=== PATIENT | male | born 1980 | race Hispanic/Latino ===

== ENCOUNTER 2019-03-06 01:19 | Inpatient (IN) | payer SELFPAY ==
[2019-03-06] MEDS ORDERED: Ibuprofen 200 MG TAB ONE (02:10)
[2019-03-06] MEDS ORDERED: Diazepam 5 MG TAB ONE (02:10)
[2019-03-06 03:05] LABS: Bacteria/HPF None Seen HPF (None Seen); Bilirubin Negative (Negative); Blood, Urine Trace (Negative); Clarity Clear (Clear); Glucose, Urine (Dipstick) Normal (Negative); Leukocyte Negative Leu/uL (Negative); Nitrite Negative (Negative); Protein, Urine (Dipstick) Negative (Neg-Trace); RBC/HPF 0-3 HPF (0-3); Squamous Epithelial None Seen HPF (0-3); Urobilinogen Normal mg/dL (Less than 2); WBC/HPF 0-3 HPF (0-3)
[2019-03-06] MEDS ORDERED: Acetaminophen 325 MG TAB PO PRN (04:18)
[2019-03-06] MEDS ORDERED: Lorazepam 2 MG/ML VIAL SLOW IVP PRN (04:29)
--- NOTE | 2019-03-06 05:24 | HP ---
CHIEF COMPLAINT: Seizures. HISTORY OF PRESENT ILLNESS: This patient is a 39-year-old male with a history of heavy alcohol use, who reports he had a seizure about a month ago, that was the first seizure he had ever had. He had been seen in [facility] in [place]. He says he was started on a seizure medication, was under the impression that he had the seizure because he was dehydrated. He took the medicine for about 2 weeks, then he left town and he has not been on the medication since. The patient was transferred here from [facility] in [place]. Their records indicate that from bystanders witnessing it, the patient was standing, he fell forward into the person standing in front of him and started having a seizure. They were able to catch him and lower him to the ground without him having a significant fall injury. He subsequently had a bit of blood from his nose. He was taken to the hospital there in [place], where he was confused, a little combative. He required several doses of IV Ativan. He settled down and slowly became more oriented. He subsequently had some vomiting, which was concerning for possible coffee-grounds emesis. He was subsequently evaluated where he was found to have a white count of 3.6, but a chest x-ray revealed left-sided pneumonia. He was given Zosyn and subsequently transferred to this facility. Currently, the patient reports some pain in his tongue where he had injured it during the seizure. He also reports that he has had a cough for several days. Reports that he did have fever prior to the seizure that was over 101, although it is very difficult to get the exact timeline of his symptoms relative to the seizure. REVIEW OF SYSTEMS: The patient has had some shortness of breath with exertion since October. He has had cough for about 3 days. All other systems reviewed. All pertinent positives and negatives noted in the history of present illness. PAST MEDICAL HISTORY: Above-mentioned history of the seizure and he also reports some anxiety. PAST SURGICAL HISTORY: None. FAMILY HISTORY: He believes there is family history of diabetes and hypertension. SOCIAL HISTORY: The patient actually lives in [place]. He drinks 4-9 beers per day and he states he drinks about 5 days per week. Denies tobacco. Denies drugs. MEDICATIONS: None, although again the patient was prescribed an antiseizure medication a month ago and he only took it for 2 weeks. ALLERGIES: NONE. PRIMARY CARE PHYSICIAN: The patient does not have a primary care provider. He is full code. His surrogate decision maker would be his mother. PHYSICAL EXAMINATION: VITAL SIGNS: Most recent set of vitals, BP 153/98, pulse 85, respirations 20, temperature max was 101.4, O2 saturations 95% on 4 L nasal cannula. GENERAL APPEARANCE: Age-appropriate male. He is in no distress. He is awake and alert. Once awakened from sleep, he was a little bit shaky initially, but that appeared to settle down. He is generally diaphoretic and his hospital gown is pretty well saturated with sweat. HEENT: PERRL. He has a hematoma on the anterolateral left tongue. NECK: Supple and symmetric. HEART: Regular rate and rhythm without murmurs, gallops, or rubs. LUNGS: Clear to auscultation bilaterally with good chest wall expansion and air exchange. ABDOMEN: Soft, nontender, and nondistended. Positive bowel sounds. No masses. No organomegaly. EXTREMITIES: No cyanosis, clubbing, or edema. PSYCHIATRIC: He appears to have normal affect and behavior. NEURO: He is generally cognizant and appropriate. He is moving all extremities spontaneously with no evidence of focal deficits. LABORATORY DATA: Labs from the outside facility showed normal urinalysis other than a few red blood cells. Lactic acid was 1.9. White count 3.6, hemoglobin 13.6, MCV 99, platelet count 52, glucose 108, BUN 8, creatinine 0.83, sodium 142, potassium 3.8, chloride 98, CO2 is 26, calcium 9.6, total bilirubin 0.9, alkaline phosphatase 78, AST 109, ALT 87, albumin 4.6, lipase is 135. Alcohol level was 36. INR is 1.1. Chest x-ray shows acute left-sided pneumonia in the left upper and mid lung zones. HOSPITAL COURSE: The patient did receive IV Protonix, 2 L of fluid, Zofran, 4 doses of Ativan, 100 mg of IV thiamin, a banana bag, Tylenol and Zosyn. IMPRESSION AND PLAN: 1. Seizure. The patient has a history of seizure about a month ago and was started on antiseizure medications which he only took for 2 weeks and then discontinued when he left town. It is not known what the medication was or what the workup involved. He believes he had dehydration leading to his seizure. He has had multiple doses of Ativan in the emergency department in [place]. He appears to be stable at the moment. We will give him some p.r.n. Ativan in case he has any agitation, it is unclear if this is related to alcohol withdrawal. The patient did have alcohol still in his system at the time he presented to the emergency department in [place], although the levels were relatively low. We will consult Neurology. 2. Left-sided pneumonia. The patient received Zosyn at the outside facility. I believe the thinking was that he might have had some aspiration, although it sounds like he was febrile prior to the seizure, so we will go ahead and cover for community-acquired pneumonia with Rocephin and azithromycin. I do not see baseline oxygen level, but he is on oxygen now. We will try to wean him off. It is unclear if he has acute hypoxic respiratory failure with that or not. 3. Alcohol abuse. The patient has significant alcohol use. He says he has been trying to decrease. We will keep the benzodiazepines available. 4. Possible gastrointestinal bleed. The patient had some coffee-ground appearing emesis. He had a negative Hemoccult. We will keep him on H2 antagonist. The patient does have thrombocytopenia and elevated liver enzymes concerning for possible cirrhotic disease and with thrombocytopenia could have lower risk of bleeding. We will continue to monitor. If he has any further evidence of bleeding, would need to consult GI. 5. Elevated liver enzymes, likely related to the ongoing alcohol use. 6. Thrombocytopenia, likely related to some degree of cirrhosis and possible splenomegaly with sequestration. Job ID: [id number]
[2019-03-06 05:42] LABS: Hemoglobin 13.4 g/dL (14.0-18.0)
[2019-03-06] MEDS ORDERED: cefTRIAXone\\ROCEPHIN 1 GM VIAL ONE (07:08)
[2019-03-06] MEDS ORDERED: Azithromycin 500 MG VIAL ONE (07:08)
[2019-03-06] MEDS: Azithromycin 500 MG in Sodium Chloride 0.9% 250 ML 250 ML IVPB SCH (07:13)
--- NOTE | 2019-03-06 08:12 | CT ---
PRELIMINARY REPORT/[facility]/EMERGENCY AFTER HOURS PROCEDURE: PROCEDURE INFORMATION: Exam: CT Head without contrast Exam date and time: 03/06/2019 5:04 AM Clinical history: 39 years old, male; Condition or disease; Convulsions or seizures; Patient HX: 39 y /o m presents to ED via transfer from [facility] for evaluation of seizure. Pt's family called 911 fo r transport to other ED after PT began having seizure like activity last night. PT, with h/o signific ant daily ETOH ingestion, notes that his last drink was x 3 days ago. While at other ED, PT was hypox ic, with imaging identifying pna. Yard Cleaner, PT received iv abx, ivf, ativan. No prior h/o seizures TECHNIQUE: Imaging protocol: Computed tomography of the head without contrast. COMPARISON: No relevant prior studies available. FINDINGS: Brain: No acute intracranial hemorrhage or midline shift. No definite acute infarct by CT. MRI could be more sensitive/specific for detection, as clinically di rected. In the anterior aspect of the left middle cranial fossa, there is an area of CSF density measuring ab out 15 mm. I suspect this may represent a small arachnoid cyst, versus focal atrophy. This is obvious ly a chronic appearance, and likely an incidental finding. Further evaluation with MRI might be usefu l, as clinically directed. Ventricles: Ventricle size is normal for age. Bones/joints: No definite acute skull fracture. Sinuses: Included paranasal sinuses are essentially clear. Mastoid air cells: No significant acute finding. IMPRESSION: 1. No acute intracranial hemorrhage or midline shift. 2. No definite acute infarct by CT, see above. 3. Suspect a possible small arachnoid cyst in the left middle cranial fossa, details above. 4. Other findings discussed above. Thank you for allowing us to participate in the care of your patient. Dictated and Authenticated by: Can Lyn MD 03/06/2019 5:28 AM Central Time ([place] & [place]) FINAL REPORT EMERGENCY AFTER HOURS BRAIN CT WITHOUT IV CONTRAST: Date: 03/06/19 Time: 0505 hours IMPRESSION: Mild sinus mucosal disease. Moderate atrophy, particularly for age. No mass or bleed, or other acute process. Report in agreement with preliminary report given on-call by [facility]. POS: [facility]
[2019-03-06] MEDS: cefTRIAXone\\ROCEPHIN 1 GM in Sodium Chloride 0.9% 100 ML IVPB SCH (08:32)
[2019-03-06] MEDS ORDERED: Famotidine 20 MG TAB PO SCH (09:00)
[2019-03-06] MEDS ORDERED: Thiamine 100 MG TAB PO SCH (09:00)
[2019-03-06] MEDS: Multivitamins, Adult 10 ML, Folic Acid 1 MG, Thiamine HCl 100 MG in Dextrose 5 %-0.45 %... IV SCH (09:21)
[2019-03-06] MEDS ORDERED: Pantoprazole 40 MG VIAL ONE (09:22)
[2019-03-06] MEDS: Pantoprazole 40 MG VIAL IVP SCH ×2 (09:29→20:08)
[2019-03-06 13:26] VITALS: BMI 28.0
--- NOTE | 2019-03-06 18:40 | PDOC.EVN ---
Event Note - Event Note Event Note: Same day follow up note: No further seizure activity. Last ETOH was Monday. I discussed alcohol use with him, he does not believe he has a problem. Explained seizure could be secondary to withdrawl. No significant cough presently. Added scheduled oral ativan. AML ordered. Neuro consult cancelled.
[2019-03-06] MEDS: Lorazepam 1 MG TAB PO SCH (20:07)
[2019-03-07 05:57] LABS: ALT (SGPT) 54 U/L (8-55); AST (SGOT) 55 U/L (5-34); Albumin 4.1 g/dL (3.5-5.0); Alkaline Phosphatase 63 U/L (40-110); Anion Gap 13 mmol/L (10-20); BUN (Urea Nitrogen) 9 mg/dL (8.9-20.6); Bilirubin, Total 1.6 mg/dL (0.2-1.2); Calc. Creatinine Clearance 175 mL/min (70-130); Calcium 9.3 mg/dL (7.8-10.44); Carbon Dioxide 26 mmol/L (22-29); Chloride 100 mmol/L (98-107); Estimated GFR-MDRD Greater than 90; Globulin 3.2 g/dL (2.4-3.5); Glucose 92 mg/dL (70-105); Potassium 3.4 mmol/L (3.5-5.1); Protein, Total 7.3 g/dL (6.0-8.3); Sodium 136 mmol/L (136-145)
[2019-03-07] MEDS: Azithromycin 500 MG in Sodium Chloride 0.9% 250 ML 250 ML IVPB SCH (06:01)
[2019-03-07 06:34] LABS: #Eosinphils 0.1 thou/uL (0.0-0.7); #Lymphocytes 0.6 thou/uL (1.20-3.40); #Monocytes 0.5 thou/uL (0.11-0.59); #Neutrophils 4.3 thou/uL (1.40-6.50); %Basophils 0.7 % (0.0-1.0); %Eosinophils 1.7 % (0.0-10.0); %Monocytes 8.9 % (0.0-10.0); %Neutrophils 78.6 % (42.0-75.0); Anisocytosis SLIGHT = 6-15 cells (100X) (0-5/hpf); Hemoglobin 14.2 g/dL (14.0-18.0); MDiff Complete? YES; Mean Corpuscular Hemoglobin 35.5 pg (27.0-31.0); Platelet Count 34 thou/uL (130-400); Platelet Morphology Comment Appears Decreased; RBC Distribution Width 11.2 % (11.5-14.5); White Blood Cell (WBC) Count 5.5 thou/uL (4.8-10.8)
[2019-03-07] MEDS: cefTRIAXone\\ROCEPHIN 1 GM in Sodium Chloride 0.9% 100 ML IVPB SCH (07:07)
[2019-03-07] MEDS ORDERED: Potassium Chloride 20 MEQ TAB PO SCH (07:30)
[2019-03-07] MEDS: Multivitamins, Adult 10 ML, Folic Acid 1 MG, Thiamine HCl 100 MG in Dextrose 5 %-0.45 %... IV SCH (08:04)
[2019-03-07] MEDS: Lorazepam 1 MG TAB PO SCH (08:05)
[2019-03-07] MEDS: Pantoprazole 40 MG VIAL IVP SCH (08:05)
[2019-03-07] MEDS ORDERED: FLU VACC QS2019-20(6MOS UP)/PF 60 MCG/0.5 ML SYRINGE IM ONE (09:00)
[2019-03-07] MEDS ORDERED: cloNIDine 0.1 MG TAB PO SCH (10:15)
--- NOTE | 2019-03-07 10:58 | DIS ---
DATE OF ADMISSION: 03/06/2019 DATE OF DISCHARGE: 03/07/2019 PRIMARY CARE PHYSICIAN: None currently. CHIEF COMPLAINT/REASON FOR ADMISSION: The patient was transferred to the hospital for concern of possible seizure. PRINCIPAL DIAGNOSIS ON ADMISSION: 1. Alcohol withdrawal complex, with complication of probable seizure. 2. Left-sided pneumonia. 3. Alcohol abuse. 4. Possible gastrointestinal bleed. 5. Elevated liver function tests. 6. Thrombocytopenia. DISCHARGE DIAGNOSES: 1. Alcohol withdrawal disorder, in the context of chronic alcohol abuse, with probable seizure. Epilepsy felt to be less likely in this context. 2. Pneumonitis secondary to aspiration, resolved. 3. Alcohol abuse, chronic. 4. No evidence of gastrointestinal bleed. 5. Mildly abnormal liver function tests secondary to alcohol use. 6. Thrombocytopenia, platelet count 34,000, secondary to chronic alcohol/ alcoholic liver disease. 7. Hypokalemia. 8. Alcoholic liver disease. STUDIES/PROCEDURES: CT brain, 03/06/2019, mild sinus mucosal disease. Moderate atrophy, particularly for age. No mass or bleed, no acute process. Suspect possible small arachnoid cyst left middle cranial fossa. HOSPITAL COURSE: Mr. Mata is a very pleasant 39-year-old gentleman, presenting to [facility] on 03/06/2019. History of heavy alcohol use. Approximately 1 month prior, seen at [facility] in [place], with symptoms concerning for possible seizure. He was prescribed an unknown medication at discharge, subsequently discontinued after about 2 weeks. The patient was initially transferred on this occasion to [facility] in [place] for evaluation of possible witnessed seizure. He was given several doses of IV Ativan, was noted to have vomiting, initially concerning for coffee-grounds emesis, but without recurrence during hospitalization. Chest x-ray notable for left-sided infiltrate. He was started on Zosyn and transferred to our facility. The patient was admitted to the hospital for additional evaluation and care. I saw and evaluated him yesterday afternoon, 03/06/2019, for a same-day followup visit. His general impression at that time was that he did not feel he had a problem with alcohol use. We discussed some of the findings of his blood work, in this context, and with agreement to revisit the discussion today. Mr. Mata and his mom are present today. His mother is a very good history administrative clerk, she is openly concerned about her son's alcohol dependence. We discussed complete alcohol cessation, and discussed options including Ativan taper to assist with this. He is open to considering the taper. I also instructed both the patient and his mom that the Ativan cannot be mixed with alcohol due to risk of sedation , and ultimately, potential risk of . He demonstrates understanding. He is hopeful to lead a healthier life, and we discussed options including community resources like Alcoholics Anonymous as well as private resources with counseling. He will continue to work through these options with his family, who is very supportive. He has had no further cough or fever. White blood cell count is normal. Lung bishop are clear on auscultation. He has received 3 days of antibiotics for pneumonitis, we will discontinue at this point in time and follow clinically. I encouraged him to establish primary care followup to be seen in 1 week. DISCHARGE MEDICATIONS: 1. Multivitamin p.o. daily. 2. Ativan taper. Provided Ativan 1 mg p.o. t.i.d., for 2 days, 1 mg p.o. b.i.d. for 2 days, then 1 mg p.o. daily x2 days and stop. 3. Clonidine 0.1 mg p.o. three times daily for two days, 0.1 two times daily for 2 days, then 0.1 mg p.o. daily for 2 days and stop. DISCHARGE INSTRUCTIONS: Advised no driving for the next week. He demonstrates understanding. DIET: Regular. ACTIVITY: As tolerated. DISPOSITION: He will be discharged home under the care of his family. TIME SPENT: Total time spent on care discharge education and counseling 55 minutes with greater than 50% of this time spent [id number] with the patient and his mother discussing alcohol addiction. Job ID: [id number] [facility]
[2019-03-07 11:22] VITALS: BP 143/92; TEMP 99.7
== END 2019-03-07 11:23 | disposition home or self-care (01) | DRG 896 ==
LOC: ERS 01:19 → ERHOLD 02:59 → 2NO 13:05
PROVIDERS: ADMIT Internal Medicine; ATTEND Internal Medicine
PROC: HZ2ZZZZ Detoxification Services for Substance Abuse Treatment (ICD-10-PCS; principal; 2019-03-06)
DX: F10.239 Alcohol dependence with withdrawal, unspecified (principal); J69.0 Pneumonitis due to inhalation of food and vomit; G40.89 Other seizures; F41.9 Anxiety disorder, unspecified; D69.59 Other secondary thrombocytopenia; E87.6 Hypokalemia; K70.9 Alcoholic liver disease, unspecified; F10.288 Alcohol dependence with other alcohol-induced disorder; Y90.1 Blood alcohol level of 20-39 mg/100 ml
CPT/HCPCS: 36415; 70450; 80053; 81003; 81015; 83605; 85014; 85018; 85025; 87040; 87086; 99285; C9113; J0456; J0696; J2060; J3411; J3490; J7042; J7050